=== PATIENT | female | born 1935 | race Caucasian/White ===

== ENCOUNTER 2020-09-28 01:53 | Inpatient (IN) | payer OTHER ==
[~2020-09-28] VITALS: Ht 157.5 cm; Wt 98.0 kg
[2020-09-28] MEDS ORDERED: BUSPIRONE HCL5 MG PO (06:26)
[2020-09-28] MEDS ORDERED: IPRAT-ALBUT 0.5-3 ML INH (06:26)
[2020-09-28] MEDS ORDERED: ELIQUIS2.5 MG PO (06:27)
[2020-09-28] MEDS ORDERED: BUMETANIDE0.5 MG PO (06:27)
[2020-09-28] MEDS ORDERED: MUPIROCIN22 GM TP (06:29)
[2020-09-28] MEDS ORDERED: SERTRALINE HCL50 MG PO (06:29)
[2020-09-28] MEDS ORDERED: ZINC OXIDE28 GM TP (06:29)
[2020-09-28] MEDS ORDERED: METOPROLOL TART25 MG PO (06:30)
[2020-09-29 06:56] LABS: RED BLOOD COUNT 3.69 M/UL (4.00-5.10); WHITE BLOOD COUNT 4.8 K/UL (4.5-11.0)
== END 2020-10-01 13:23 | disposition home or self-care (01) | DRG 393 ==
LOC: MED SURG 4 03:27
PROVIDERS: ADMIT Internal Medicine
DX: K42.0 Umbilical hernia with obstruction, without gangrene (principal); I50.23 Acute on chronic systolic (congestive) heart failure; I13.0 Hypertensive heart and chronic kidney disease with heart failure and stage 1 through stage 4 chronic kidney disease, or unspecified chronic kidney disease; N18.30 Chronic kidney disease, stage 3 unspecified; I48.91 Unspecified atrial fibrillation; Z79.01 Long term (current) use of anticoagulants; Z20.822 Contact with and (suspected) exposure to COVID-19; J44.9 Chronic obstructive pulmonary disease, unspecified; M47.816 Spondylosis without myelopathy or radiculopathy, lumbar region; I87.8 Other specified disorders of veins
CPT/HCPCS: 36415; 80048; 83880; 85025; 87635; 93005; 94664; 94760; 97162; 97165; J1940